=== PATIENT | female | born 1990 | race African-American/Black ===

== ENCOUNTER 2018-10-28 11:00 | Emergency (ER) | payer MEDICARE ==
[~2018-10-28] VITALS: Ht 170.2 cm; Wt 117.9 kg
[~2018-10-28 11:00] MED LIST: ACETAMINOPHEN-1 EAC1 PO; AMOXICILLIN 50500 MG PO; AMOXICILLIN875 MG PO; CARAFATE 1 GM TA1 GM PO; CEPHALEXIN 500500 M2 PO; KEFLEX500 M1 PO; KEFLEX500 MG PO; LISINOPRIL10 MG PO; NOHOMEMEDICATIONS; NORCO 5-325 TA1 EACH PO; PEPCID20 MG PO; PREDNISONE50 MG PO; TOBRADEX EYE DRO5 ML OP; ULTRAM 50MG TAB50 MG PO; VISTARIL 25 MG25 M1 PO
[2018-10-28] MEDS ORDERED: ZPAK PO (11:56)
[2018-10-28] MEDS ORDERED: MEDROLDOSEPACK PO (11:56)
[2018-10-28 12:03] VITALS: BP 159/69
== END 2018-10-28 12:04 | disposition home or self-care (01) ==
LOC: M.ERS 11:00
DX: J02.9 Acute pharyngitis, unspecified (principal); B34.9 Viral infection, unspecified; E10.9 Type 1 diabetes mellitus without complications

== ENCOUNTER 2019-04-19 19:46 | Emergency (ER) | payer MEDICARE ==
[~2019-04-19] VITALS: Ht 177.8 cm; Wt 117.1 kg
[~2019-04-19 19:46] MED LIST changes: +MEDROLDOSEPACK PO; +ZPAK PO
[2019-04-19 20:38] LABS: URINE BILIRUBIN NEGATIVE (Negative); URINE BLOOD 3+ (Negative); URINE CLARITY CLEAR; URINE COLOR YELLOW; URINE GLUCOSE-RANDOM NEGATIVE (Negative); URINE KETONES 1+ (Negative); URINE LEUKOCYTES-REFLEX 1+ (Negative); URINE NITRITE-REFLEX NEGATIVE (Negative); URINE PROTEIN TRACE (Negative)
[2019-04-19 20:45] LABS: MUCUS 0-3 Light strn/LPF (None Seen); SQUAMOUS >10 Many /LPF (0-3)
[2019-04-19 20:46] LABS: BACTERIA-REFLEX 1-9 Few /HPF (None Seen)
[2019-04-19 20:47] LABS: CASTS None Seen /LPF (None Seen); CRYSTALS None Seen /LPF (None Seen)
[2019-04-19 20:52] LABS: ABSOLUTE BASOPHILS 0.1 thou/uL (0.0-0.2); ABSOLUTE EOSINOPHILS 0.1 thou/uL (0.0-0.7); ABSOLUTE LYMPHOCYTES 2.2 thou/uL (0.8-5.3); ABSOLUTE MONOCYTES 0.5 thou/uL (0.0-1.2); ABSOLUTE NEUTROPHILS 4.2 thou/uL (1.6-8.1); BASOPHILS 0.8 %; EOSINOPHILS 0.9 %; HEMATOCRIT 34.8 % (37.0-47.0); HEMOGLOBIN 11.1 gm/dL (12.0-15.0); LYMPHOCYTES 31.1 %; MCH 24.8 pg (26.0-34.0); MCHC 31.9 g/dL (28.0-37.0); MCV 77.7 fL (80.0-100.0); MONOCYTES 7.3 %; MPV 9.1 fl. (7.2-11.1); NUCLEATED RBCS 0 /100WBC; PLATELET COUNT* 208 thou/uL (150-400); POLYS 59.9 %; RBC 4.48 mil/uL (4.20-5.00); WBC 7.1 thou/uL (4.0-11.0)
[2019-04-19 21:00] LABS: ANION GAP 7 mmol/L (7-16); BUN 7 mg/dL (7-18); CALCIUM 9.2 mg/dL (8.5-10.1); CHLORIDE 105 mmol/L (98-107); CO2 29 mmol/L (21-32); GLUCOSE 81 mg/dL (70-99); POTASSIUM 3.2 mmol/L (3.5-5.1); SODIUM 141 mmol/L (136-145)
[2019-04-19 21:10] LABS: ALBUMIN 3.6 g/dL (3.4-5.0); ALKALINE PHOSPHATASE 62 U/L (46-116); LIPASE 84 U/L (73-393); SGOT 13 U/L (15-37); SGPT 14 U/L (30-65); TOTAL BILIRUBIN 0.4 mg/dL (<0.1-1.0); TOTAL PROTEIN 7.7 g/dL (6.4-8.2); TROPONIN-I LEVEL <0.06 ng/mL (<0.06)
[2019-04-19] MEDS ORDERED: ONDANSETRON HCL4 M2 PO ×2 (22:50→22:52)
[2019-04-19] MEDS ORDERED: MACROBID 100 M100 M2 PO ×2 (22:50→22:52)
[2019-04-19] MEDS ORDERED: NABUMETONE 750750 M1 PO ×2 (22:50→22:52)
[2019-04-20 00:04] VITALS: BP 137/63
--- NOTE | 2019-04-20 10:40 | EKG ---
[place] [address] ELECTROCARDIOGRAM REPORT Name: DILLANLORY Val Room: [facility] [place]#: [id number] Admission: 04/19/19 Attend Phys: Discharge: 04/20/19 Date of : 89 Report #: [id number] THIS REPORT FOR: //name// [facility] ED Test Date: 2019-04-19 Test Time: 20:50:33 Pat Name: LORY GRIMALDO Department: Room: Gender: F Sales Relationship Manager: [place] : 1990 Requested By: Olivia Alves Order Number: [id number] MD: Mikal Ovalle Measurements Intervals Bowler Rate: 72 P: 36 RI: 146 QRS: -20 QRSD: 97 T: 0 QT: 391 QTc: 428 Interpretive Statements Sinus rhythm Borderline left axis deviation RSR' in V1 or V2, probably normal variant Borderline T abnormalities, inferior leads Compared to ECG 04/19/2014 21:11:57 Sinus tachycardia no longer present Electronically Signed On 04-20-2019 10:40:12 CDT by Mikal Ovalle [email or web address] <ELECTRONICALLY SIGNED> By: Mikal Ovalle MD, [facility] 04/20/191039 49 49 Mikal Ovalle MD, [facility] /EPI
== END 2019-04-20 00:05 | disposition home or self-care (01) ==
LOC: M.ERS 19:46
PROVIDERS: Nurse Practitioner Family
DX: N39.0 Urinary tract infection, site not specified (principal); N63.10 Unspecified lump in the right breast, unspecified quadrant; E10.9 Type 1 diabetes mellitus without complications

== ENCOUNTER 2021-04-04 16:38 | Emergency (ER) | payer MEDICARE ==
[~2021-04-04] VITALS: Ht 177.8 cm; Wt 90.7 kg
[~2021-04-04 16:38] MED LIST changes: +MACROBID 100 M100 M2 PO; +NABUMETONE 750750 M1 PO; +ONDANSETRON HCL4 M2 PO
[2021-04-04 17:45] VITALS: BP 158/91
== END 2021-04-04 17:45 | disposition home or self-care (01) ==
LOC: M.ERS 16:38
DX: T23.221A Burn of second degree of single right finger (nail) except thumb, initial encounter (principal); T31.0 Burns involving less than 10% of body surface; E10.9 Type 1 diabetes mellitus without complications; J45.909 Unspecified asthma, uncomplicated; I10 Essential (primary) hypertension; F17.210 Nicotine dependence, cigarettes, uncomplicated; X13.1XXA Other contact with steam and other hot vapors, initial encounter; Y93.89 Activity, other specified; Y92.89 Other specified places as the place of occurrence of the external cause; Y99.8 Other external cause status